=== PATIENT | female | born 1990 | race Caucasian/White ===

== ENCOUNTER → 2017-10-13 | Outpatient (REF) | payer OTHER | LOC: M LAB REF 16:53 | DX: Z34.83 Encounter for supervision of other normal pregnancy, third trimester (principal) ==

== ENCOUNTER 2017-11-06 05:46 | Inpatient (IN) | payer OTHER ==
[2017-11-06 06:44] LABS: HEMATOCRIT 31.2 % (36.0-47.0); HEMOGLOBIN 10.4 g/dl (12.0-15.5); MEAN CORPUSCULAR HEMOGLOBIN 28.1 pg (27.0-33.0); MEAN CORPUSCULAR HGB CONC 33.3 g/dl (32.0-36.5); MEAN CORPUSCULAR VOLUME 84.3 fl (80.0-96.0); PLATELET COUNT, AUTOMATED 204 10^3/uL (150-450); RED CELL DISTRIBUTION WIDTH 13.7 % (11.5-14.5); WHITE BLOOD COUNT 9.4 10^3/uL (4.0-10.0)
[2017-11-06] MEDS ORDERED: ONDANSETRON 4MG/2ML VIAL (J2405) IV ×3 (07:10→09:30)
[2017-11-06] MEDS ORDERED: NALBUPHINE HCL 10 MG/ML AMP (J2300) IV ×2 (07:10→09:30)
[2017-11-06] MEDS ORDERED: NALOXONE INJ 0.4 MG/1 ML VIAL (J2310) IV ×2 (07:10)
[2017-11-06] MEDS ORDERED: ONDANSETRON 4MG/2ML VIAL (J2405) As Ordered ×2 (07:20→10:49)
[2017-11-06] MEDS ORDERED: OXYTOCIN INJ 10 UNITS/ML VIAL (J2590) As Ordered (07:20)
[2017-11-06] MEDS ORDERED: MORPHINE PRES-FREE INJ 10 MG/10 ML VIAL (J2274) As Ordered (07:20)
[2017-11-06] MEDS ORDERED: ceFAZolin 2 GM/D5W 50 ML IV BAG (J0690 PER 500MG) As Ordered (07:22)
[2017-11-06] MEDS: BICITRA 30ML SOLN UDC PO (07:24)
[2017-11-06] MEDS: LR 1,000 ML IV ×6 (07:25→22:31)
[2017-11-06] MEDS ORDERED: PHENYLephrine HCL 500 MCG/5 ML (100MCG/ML) SYRINGE (J2370) As Ordered ×2 (07:50→08:08)
[2017-11-06] MEDS ORDERED: ePHEDrine SULFATE 25 MG/5 ML(5MG/ML) SYRINGE As Ordered ×2 (08:08→10:49)
[2017-11-06] MEDS ORDERED: KETOROLAC 60 MG/2 ML VIAL (J1885) As Ordered (08:32)
[2017-11-06] MEDS: OXYTOCIN DRIP 30 UNITS in APPROPRIATE DILUENT 1 EA IV (08:37)
[2017-11-06] MEDS ORDERED: PERCOCET 5MG/325MG TAB PO (08:45)
[2017-11-06] MEDS ORDERED: PROMETHAZINE 25 MG TAB PO (08:45)
[2017-11-06] MEDS ORDERED: MEASLES,MUMPS,RUBELLA VACCINE INJ (MMR-II) (90707) SC (08:45)
[2017-11-06] MEDS ORDERED: OXYTOCIN 30 UNITS IN 0.9% NaCl 500ML IV BAG (J2590) As Ordered (08:51)
[2017-11-06] MEDS: PRENATAL VITAMINS CHEWABLE TABLET PO (09:00)
[2017-11-06] MEDS: DOCUSATE SODIUM 100 MG CAP PO ×2 (09:00→21:09)
[2017-11-06] MEDS ORDERED: fentaNYL 100 MCG/2 ML INJECTION (J3010) IV (09:30)
[2017-11-06 09:51] LABS: HEPATITIS B SURFACE ANTIGEN NEGATIVE (NEGATIVE)
[2017-11-06 10:43] LABS: HEMATOCRIT 27.1 % (36.0-47.0); HEMOGLOBIN 8.9 g/dl (12.0-15.5); MEAN CORPUSCULAR HEMOGLOBIN 28.1 pg (27.0-33.0); MEAN CORPUSCULAR HGB CONC 32.8 g/dl (32.0-36.5); MEAN CORPUSCULAR VOLUME 85.5 fl (80.0-96.0); PLATELET COUNT, AUTOMATED 150 10^3/uL (150-450); RED BLOOD COUNT 3.17 10^6/uL (4.00-5.40); RED CELL DISTRIBUTION WIDTH 13.6 % (11.5-14.5); WHITE BLOOD COUNT 8.1 10^3/uL (4.0-10.0)
[2017-11-06] MEDS ORDERED: GLYCOPYRROLATE INJ 0.2 MG/ML 2 ML VIAL As Ordered (10:49)
[2017-11-06 10:58] LABS: INR 0.96; PROTHROMBIN TIME 12.9 SECONDS (12.1-14.4)
[2017-11-06 10:59] LABS: FIBRINOGEN 410 MG/DL (221-452); PARTIAL THROMBOPLASTIN TIME 30.3 SECONDS (25.4-37.6)
[2017-11-06] MEDS: METOCLOPRAMIDE INJ 10MG/2ML VIAL (J2765) IV (12:36)
[2017-11-06] MEDS: KETOROLAC 30 MG/ML VIAL (J1885) IV ×2 (14:57→21:09)
[2017-11-07] MEDS: KETOROLAC 30 MG/ML VIAL (J1885) IV (03:11)
[2017-11-07] MEDS: LR 1,000 ML IV ×2 (05:57→23:15)
[2017-11-07 07:07] LABS: HEMATOCRIT 26.4 % (36.0-47.0); HEMOGLOBIN 8.5 g/dl (12.0-15.5); MEAN CORPUSCULAR HEMOGLOBIN 27.8 pg (27.0-33.0); MEAN CORPUSCULAR HGB CONC 32.2 g/dl (32.0-36.5); MEAN CORPUSCULAR VOLUME 86.3 fl (80.0-96.0); PLATELET COUNT, AUTOMATED 171 10^3/uL (150-450); RED BLOOD COUNT 3.06 10^6/uL (4.00-5.40); RED CELL DISTRIBUTION WIDTH 13.7 % (11.5-14.5); WHITE BLOOD COUNT 11.1 10^3/uL (4.0-10.0)
[2017-11-07] MEDS: PRENATAL VITAMINS CHEWABLE TABLET PO (08:39)
[2017-11-07] MEDS: DOCUSATE SODIUM 100 MG CAP PO ×2 (08:40→20:16)
[2017-11-07 10:26] LABS: FETAL SCREEN PROF. 1 1
[2017-11-07] MEDS: IBUPROFEN 800 MG TAB PO ×2 (10:43→19:00)
[2017-11-07] MEDS: RHOGAM 300 MCG (1500 IU) INJ (J2790) IM (10:49)
[2017-11-07] MEDS: PERCOCET 5MG/325MG TAB PO (15:58)
[2017-11-08] MEDS: PERCOCET 5MG/325MG TAB PO ×2 (01:32→08:49)
[2017-11-08] MEDS: IBUPROFEN 800 MG TAB PO ×2 (03:07→10:58)
[2017-11-08] MEDS: DOCUSATE SODIUM 100 MG CAP PO (08:23)
[2017-11-08] MEDS: PRENATAL VITAMINS CHEWABLE TABLET PO (08:23)
[2017-11-08] MEDS: INFLUENZA QUADRIVALENT PF VACCINE 0.5ML SYRINGE (90686) IM (08:24)
== END 2017-11-08 11:50 | disposition home or self-care (01) | DRG 766 ==
LOC: M LDI 05:46 → M OBS 11:14
PROVIDERS: Obstetrics & Gynecology
PROC: 10D00Z1 Extraction of Products of Conception, Low, Open Approach (ICD-10-PCS; principal; 2017-11-06 07:30)
DX: O32.1XX0 Maternal care for breech presentation, not applicable or unspecified (principal); Z3A.39 39 weeks gestation of pregnancy; Z37.0 Single live birth

== ENCOUNTER → 2018-04-11 | Outpatient (REF) | payer OTHER ==
[~2018-04-11] MED LIST: IBUP1TAB7 PO; OXYC1TAB23 PO; PERCOCET PO; PRENTAB55 PO; RANI15TA PO; TUMS500C PO
== END ==
LOC: M SFHCLERA 19:16
PROVIDERS: ATTEND Physician Assistant
DX: J02.9 Acute pharyngitis, unspecified (principal)

== ENCOUNTER → 2020-07-10 | Outpatient (CLI) | payer OTHER ==
--- NOTE | 2020-07-10 20:09 | REP ---
INDICATION: PAIN IN LEFT FOOT. COMPARISON: None. TECHNIQUE: Four views of the left foot. FINDINGS: Four views of the left foot demonstrate metallic screws in place in the distal diaphysis of the 1st metatarsal as well as in the 1st proximal phalanx. There is a mild hallux valgus. Patient is status post bunion repair. Overall mineralization pattern is normal. Bones, joints, and soft tissues are otherwise unremarkable.. No fracture or subluxation is seen. No opaque foreign body noted. IMPRESSION: Postoperative changes in the 1st metatarsal and 1st proximal phalanx with a metallic screw in each of these locations. No acute bony abnormality seen.. <Electronically signed by Victor Hugo Phillips > 07/10/202005
== END ==
LOC: M RAD 18:53
PROVIDERS: ATTEND Physician Assistant
DX: M79.672 Pain in left foot (principal)

== ENCOUNTER → 2022-07-26 | Outpatient (CLI) | payer OTHER ==
[2022-07-26 15:00] LABS: BASO % 0.6 % (0.0-1.0); EOS # 0.1 10^3/uL (0.0-0.5); EOS % 2.8 % (0.0-3.0); HEMATOCRIT 39.3 % (36.0-47.0); HEMOGLOBIN 12.7 g/dl (12.0-15.5); LYMPH # 1.7 10^3/uL (1.5-5.0); LYMPH % 35.2 % (24.0-44.0); MEAN CORPUSCULAR HEMOGLOBIN 30.2 pg (27.0-33.0); MEAN CORPUSCULAR HGB CONC 32.3 g/dl (32.0-36.5); MEAN CORPUSCULAR VOLUME 93.3 fl (80.0-96.0); MONO # 0.4 10^3/uL (0.0-0.8); MONO % 7.4 % (2.0-8.0); NEUTROPHILS # 2.5 10^3/uL (1.5-8.5); NEUTROPHILS % 53.8 % (36.0-66.0); PLATELET COUNT, AUTOMATED 195 10^3/uL (150-450); RED BLOOD COUNT 4.21 10^6/uL (4.00-5.40); WHITE BLOOD COUNT 4.7 10^3/uL (4.0-10.0)
[2022-07-26 15:22] LABS: ALBUMIN 4.1 G/DL (3.2-5.2); ALKALINE PHOSPHATASE 39 U/L (46-116); ALT/SGPT 11 U/L (7.0-40); AST/SGOT 11 U/L (<34); BILIRUBIN,TOTAL 0.4 MG/DL (0.3-1.2); BLOOD UREA NITROGEN 11 MG/DL (9-23); CALCIUM LEVEL 9.3 MG/DL (8.5-10.1); CARBON DIOXIDE LEVEL 27 MMOL/L (20-31); CHLORIDE LEVEL 106 MMOL/L (98-107); CREATININE FOR GFR 0.87 MG/DL (0.55-1.30); GLOMERULAR FILTRATION RATE > 60.0 (>60); GLUCOSE, FASTING 86 MG/DL (60-100); POTASSIUM SERUM 4.5 MMOL/L (3.5-5.1); SODIUM LEVEL 139 MMOL/L (136-145); TOTAL PROTEIN 6.6 G/DL (5.7-8.2)
[2022-07-26 15:23] LABS: FREE T4 0.89 NG/DL (0.89-1.76); THYROID STIMULATING HORMONE 2.175 uIU/ML (0.55-4.78)
[2022-07-26 15:36] LABS: INR 0.96
[2022-07-26 15:37] LABS: PARTIAL THROMBOPLASTIN TIME 30.2 SECONDS (24.8-34.2)
== END ==
LOC: M LAB 14:18
PROVIDERS: ATTEND Student in an Organized Health Care Education/Training Program
DX: Z00.00 Encounter for general adult medical examination without abnormal findings (principal); N92.0 Excessive and frequent menstruation with regular cycle; R23.3 Spontaneous ecchymoses

== ENCOUNTER → 2022-08-11 | Outpatient (CLI) | payer OTHER ==
[2022-08-11 14:07] LABS: HEPATITIS B SURFACE ANTIGEN NEGATIVE (NEGATIVE)
[2022-08-11 14:20] LABS: HIV 1&2 SCREEN NEGATIVE (NEGATIVE)
[2022-08-11 14:29] LABS: HEPATITIS B CORE ANTIBODY IGM NEGATIVE (NEGATIVE)
[2022-08-11 15:47] LABS: GC DNA AMPLIFICATION NEGATIVE (NEGATIVE)
[2022-08-11 15:53] LABS: GC DNA AMPLIFICATION NEGATIVE (NEGATIVE)
== END ==
LOC: M PLALAB 09:46
PROVIDERS: ATTEND Nurse Practitioner Family
DX: Z01.411 Encounter for gynecological examination (general) (routine) with abnormal findings (principal); Z11.3 Encounter for screening for infections with a predominantly sexual mode of transmission; Z12.4 Encounter for screening for malignant neoplasm of cervix

== ENCOUNTER → 2022-11-01 | Outpatient (CLI) | payer OTHER | LOC: M SOG 07:56 | PROVIDERS: ATTEND Physician Assistant | DX: M25.539 Pain in unspecified wrist (principal) ==